=== PATIENT | male | born 1990 | race Caucasian/White ===

== ENCOUNTER 2023-02-07 | Emergency (ER) | payer BC ==
[2023-02-07] MEDS ORDERED: Boostrix 0.5 ML (Tdap) VIAL (>/=7 yrs of age) ONE (00:09)
[2023-02-07] MEDS ORDERED: Lidocaine 2% PF 5 ML VIAL ONE (00:37)
== END 2023-02-07 01:30 | disposition home or self-care (01) ==
LOC: ERS
DX: S81.812A Laceration without foreign body, left lower leg, initial encounter (principal); W22.8XXA Striking against or struck by other objects, initial encounter; Z23 Encounter for immunization
CPT/HCPCS: 12002; 90471; 90715; J2001